=== PATIENT | female | born 1950 | race Caucasian/White ===

== ENCOUNTER 2018-10-09 20:09 | Inpatient (IN) | payer OTHER, MEDICAID ==
[~2018-10-09] VITALS: Ht 152.4 cm; Wt 46.7 kg
[2018-10-09] MEDS ORDERED: IPRATROPIUM BROMIDE (0.02%) 0.5MG/2.5ML NEB HHN STA (20:51)
[2018-10-09] MEDS ORDERED: METHYLPREDNISOLONE SOD SUCC 125 MG/2 ML VIAL IV STA (20:51)
[2018-10-09] MEDS ORDERED: ALBUTEROL (0.083%) 2.5MG/3ML NEB HHN STA (20:51)
[2018-10-09] MEDS ORDERED: MAGNESIUM 2 G PREMIX 50 ML IV ONE (21:00)
[2018-10-09] MEDS ORDERED: ASPIRIN 81MG TABLET PO ONE (21:00)
[2018-10-09 21:31] LABS: BASOPHILS % 0.3 % (0.0-2.0); EOSINOPHILS % 0.8 % (0.0-5.0); HEMATOCRIT. 42.3 % (36.0-48.0); HEMOGLOBIN. 13.2 g/dL (12.0-16.0); LYMPHOCYTES % 36.6 % (20.0-50.0); MEAN CORPUSCULAR HEMOGLOBIN 31.2 pg (28.0-32.0); MEAN CORPUSCULAR VOLUME 99.9 fL (81.0-99.0); MEAN PLATELET VOLUME 8.9 fl (7.4-10.4); MONOCYTES % 8.2 % (2.0-8.0); NEUTROPHILS % 54.1 % (40.0-76.0); PLATELET 283 x1000/uL (130-400); RED BLOOD CELL COUNT 4.23 mill/uL (4.2-5.4); RED CELL DISTRIBUTION WIDTH 14.2 % (11.6-14.6)
[2018-10-09 21:37] LABS: CHLORIDE 94 mEq/L (98-107)
[2018-10-09 21:38] LABS: INR 1.2; PARTIAL THROMBOPLASTIN TIME 27.8 sec (23.4-31.0); PROTHROMBIN TIME 12.1 sec (9.1-11.1)
[2018-10-09 22:38] LABS: BG BASE EXCESS 20.8 mmol/L (-2.0-2.0); BG CARBOXYHEMOGLOBIN 1.2 % (0.5-1.5); BG DEOXYHEMOGLOBIN 17.8 % (0.0-5.0); BG FRACTION INSPIRED OXYGEN 28; BG HCO3 ACT 55.6 mmol/L (22.0-26.0); BG METHEMOGLOBIN 0.4 % (0.0-1.5); BG OXYGEN SATURATION 81.9 % (92.0-98.5); BG OXYHEMOGLOBIN 80.6 % (94.0-97.0); BG PCO2 141.2 mmHg (35.0-45.0); BG PH 7.213 (7.350-7.450); BG PO2 51.1 mmHg (75.0-100.0); BG SAMPLE SITE RIGHT BRACHIAL; BG TOTAL HEMOGLOBIN 13.6 g/dL (12.0-18.0); BG VENT MODE NASAL CANNULA
[2018-10-09] MEDS ORDERED: CLONIDINE 0.1MG TABLET PO PRN (23:00)
[2018-10-09] MEDS ORDERED: ACETAMINOPHEN 650MG/20.3ML UDC GT PRN (23:00)
[2018-10-09] MEDS ORDERED: DIPHENHYDRAMINE 50MG/ML VIAL IV PRN (23:00)
[2018-10-09] MEDS ORDERED: DOCUSATE SODIUM 100MG CAPSULE PO PRN (23:00)
[2018-10-09] MEDS ORDERED: GUAIFENESIN 200MG/10ML SUGAR FREE UDC PO PRN (23:00)
[2018-10-09] MEDS ORDERED: MAGNESIUM/ALUMINUM HYDROXIDE/SIMETHICONE 30ML UDC PO PRN (23:00)
[2018-10-09] MEDS ORDERED: HYDROCODONE/ACETAMINOPHEN 5/325MG TABLET PO PRN (23:00)
[2018-10-09] MEDS ORDERED: ACETAMINOPHEN 325MG TABLET PO PRN (23:00)
[2018-10-09] MEDS ORDERED: ONDANSETRON HCL 4MG/2ML INJ IV PRN (23:00)
[2018-10-09] MEDS ORDERED: ACETAMINOPHEN 650MG SUPP PR PRN (23:00)
[2018-10-09 23:49] LABS: BG BASE EXCESS 21.1 mmol/L (-2.0-2.0); BG CARBOXYHEMOGLOBIN 0.9 % (0.5-1.5); BG DEOXYHEMOGLOBIN 1.3 % (0.0-5.0); BG FRACTION INSPIRED OXYGEN 40; BG HCO3 ACT 57.1 mmol/L (22.0-26.0); BG METHEMOGLOBIN 0.6 % (0.0-1.5); BG OXYGEN SATURATION 98.7 % (92.0-98.5); BG OXYHEMOGLOBIN 97.2 % (94.0-97.0); BG PH 7.168 (7.350-7.450); BG PO2 166.1 mmHg (75.0-100.0); BG SAMPLE SITE RIGHT RADIAL; BG TOTAL HEMOGLOBIN 13.6 g/dL (12.0-18.0); BG VENT MODE MASK - BIPAP; BG VENT RATE 14 set
[2018-10-10] VITALS (41 sets, daily range): BP systolic 97–149; BP diastolic 55–91
[2018-10-10] MEDS ORDERED: PROPOFOL 10MG/ML 100ML 100 ML IV ONE (00:13)
[2018-10-10] MEDS ORDERED: PROPOFOL 10MG/ML 100ML 100 ML IV SCH ×2 (00:15→02:15)
[2018-10-10] MEDS ORDERED: SUCCINYLCHOLINE CHLORIDE 200MG/10ML IV ONE (00:15)
[2018-10-10] MEDS ORDERED: ETOMIDATE 2MG/ML 10ML VIAL IV ONE (00:15)
[2018-10-10 00:38] LABS: CLARITY URINE CLEAR (CLEAR); COLOR URINE YELLOW (YELLOW); KETONES URINE NEGATIVE (NEGATIVE); LEUKOCYTE ESTERASE URINE NEGATIVE (NEGATIVE); NITRITE URINE NEGATIVE (NEGATIVE); OCCULT BLOOD URINE NEGATIVE (NEGATIVE); PH URINE 5.5 (4.5-8.0); PROTEIN URINE TRACE (NEGATIVE); SPECIFIC GRAVITY URINE 1.023 (1.005-1.030); UROBILINOGEN URINE 0.2 E.U./dL (0.2-1.0)
[2018-10-10] MEDS ORDERED: SODIUM CHLORIDE 0.9% 1,000 ML IV ONE (00:42)
[2018-10-10] MEDS ORDERED: NOREPINEPHRINE 4MG/250ML PMX 250 ML IV ONE (01:18)
[2018-10-10 01:21] LABS: BG CARBOXYHEMOGLOBIN 0.3 % (0.5-1.5); BG DEOXYHEMOGLOBIN 0.6 % (0.0-5.0); BG FRACTION INSPIRED OXYGEN 100; BG HCO3 ACT 35.2 mmol/L (22.0-26.0); BG METHEMOGLOBIN 0.3 % (0.0-1.5); BG OXYGEN SATURATION 99.4 % (92.0-98.5); BG OXYHEMOGLOBIN 98.8 % (94.0-97.0); BG PH 7.511 (7.350-7.450); BG PO2 245.4 mmHg (75.0-100.0); BG SAMPLE SITE LEFT BRACHIAL; BG TIDAL VOLUME(mL) 400 mL; BG TOTAL HEMOGLOBIN 11.7 g/dL (12.0-18.0); BG VENT MODE VENT - A/C; BG VENT RATE 14 set
[2018-10-10] MEDS ORDERED: NOREPINEPHRINE 4 MG in DEXT 5% WATER 246 ML IV ONE (01:30)
[2018-10-10] MEDS ORDERED: NA PHOS,M-B/NA PHOS,DI-BA ENEMA 118ML PR PRN (03:30)
[2018-10-10] MEDS ORDERED: IPRATROPIUM/ALBUTEROL 0.5-3(2.5)MG/3ML NEB HHN PRN (03:45)
[2018-10-10] MEDS ORDERED: PROPOFOL 10MG/ML 100ML 100 ML IV PRN (03:45)
[2018-10-10] MEDS: IPRATROPIUM/ALBUTEROL 0.5-3(2.5)MG/3ML NEB HHN SCH ×5 (04:22→19:58)
[2018-10-10] MEDS: METHYLPREDNISOLONE SOD SUCC 125 MG/2 ML VIAL IV SCH ×4 (06:17→23:09)
[2018-10-10 06:18] LABS: BASOPHILS % 0.4 % (0.0-2.0); HEMATOCRIT. 39.8 % (36.0-48.0); HEMOGLOBIN. 12.4 g/dL (12.0-16.0); LYMPHOCYTES % 10.9 % (20.0-50.0); MEAN CORPUSCULAR HEMOGLOBIN 30.9 pg (28.0-32.0); MEAN CORPUSCULAR VOLUME 98.9 fL (81.0-99.0); MEAN PLATELET VOLUME 8.7 fl (7.4-10.4); MONOCYTES % 5.7 % (2.0-8.0); PLATELET 253 x1000/uL (130-400); RED BLOOD CELL COUNT 4.02 mill/uL (4.2-5.4); RED CELL DISTRIBUTION WIDTH 14.2 % (11.6-14.6)
[2018-10-10 06:29] LABS: CHLORIDE 97 mEq/L (98-107)
[2018-10-10 06:37] LABS: LDL CHOLESTEROL 80 mg/dL (5-100)
[2018-10-10 06:39] LABS: HDL CHOLESTEROL 73 mg/dL (40-59)
[2018-10-10 06:41] LABS: CREATINE KINASE MB FRACTION 1.7 ng/mL (0.5-3.6)
[2018-10-10 07:20] LABS: CREATINE KINASE 59 IU/L (26-192)
[2018-10-10 08:04] LABS: BG BASE EXCESS 12.6 mmol/L (-2.0-2.0); BG CARBOXYHEMOGLOBIN 0.5 % (0.5-1.5); BG DEOXYHEMOGLOBIN 0.4 % (0.0-5.0); BG FRACTION INSPIRED OXYGEN 60; BG METHEMOGLOBIN 0.7 % (0.0-1.5); BG OXYGEN SATURATION 99.6 % (92.0-98.5); BG OXYHEMOGLOBIN 98.4 % (94.0-97.0); BG PCO2 41.1 mmHg (35.0-45.0); BG PO2 277.5 mmHg (75.0-100.0); BG SAMPLE SITE RIGHT RADIAL; BG TIDAL VOLUME(mL) 400 mL; BG TOTAL HEMOGLOBIN 12.7 g/dL (12.0-18.0); BG VENT MODE VENT - A/C; BG VENT RATE 14 set
[2018-10-10] MEDS ORDERED: ENOXAPARIN 40MG/0.4ML SYR SUBCUT SCH (09:00)
[2018-10-10] MEDS ORDERED: LOSA1TAB37 PO (11:26)
[2018-10-10] MEDS ORDERED: DEXTROSE 50% WATER 50ML SYRINGE IV PRN (13:30)
[2018-10-10] MEDS ORDERED: LEVOFLOXACIN 500MG PREMIX 100 ML IV NR (14:00)
[2018-10-10] MEDS: DEXT 5%/0.45% NACL 1000ML 1,000 ML IV SCH (14:14)
[2018-10-10] MEDS: FAMOTIDINE 20MG/2ML VIAL IV SCH (14:59)
[2018-10-10 15:40] LABS: BG BASE EXCESS 11.2 mmol/L (-2.0-2.0); BG CARBOXYHEMOGLOBIN 0.1 % (0.5-1.5); BG DEOXYHEMOGLOBIN 1.6 % (0.0-5.0); BG FRACTION INSPIRED OXYGEN 40; BG HCO3 ACT 38.4 mmol/L (22.0-26.0); BG METHEMOGLOBIN 0.4 % (0.0-1.5); BG OXYGEN SATURATION 98.4 % (92.0-98.5); BG OXYHEMOGLOBIN 97.9 % (94.0-97.0); BG PCO2 63.2 mmHg (35.0-45.0); BG PH 7.402 (7.350-7.450); BG PO2 122.8 mmHg (75.0-100.0); BG SAMPLE SITE RIGHT RADIAL; BG TIDAL VOLUME(mL) 400 mL; BG TOTAL HEMOGLOBIN 12.8 g/dL (12.0-18.0); BG VENT MODE VENT - A/C; BG VENT RATE 8 set
[2018-10-10 17:02] LABS: CREATINE KINASE MB FRACTION 1.5 ng/mL (0.5-3.6)
[2018-10-10] MEDS: LORAZEPAM 2MG/ML CPJ IV PRN (18:07)
[2018-10-10] MEDS: PROPOFOL 10MG/ML 100ML 100 ML IV PRN (18:08)
[2018-10-10] MEDS: BLOOD SUGAR DIAGNOSTIC STRIP TEST SCH (18:19)
[2018-10-10] MEDS: INSULIN LISPRO 100 UNITS/ML SUBCUT SCH (18:22)
[2018-10-11] VITALS (48 sets, daily range): BP systolic 100–147; BP diastolic 53–85
[2018-10-11] MEDS: BLOOD SUGAR DIAGNOSTIC STRIP TEST SCH ×4 (00:03→17:21)
[2018-10-11] MEDS: IPRATROPIUM/ALBUTEROL 0.5-3(2.5)MG/3ML NEB HHN SCH ×7 (00:18→20:24)
[2018-10-11] MEDS: INSULIN LISPRO 100 UNITS/ML SUBCUT SCH ×3 (00:30→17:21)
[2018-10-11] MEDS: LORAZEPAM 2MG/ML CPJ IV PRN ×2 (02:16→08:13)
[2018-10-11] MEDS: DEXT 5%/0.45% NACL 1000ML 1,000 ML IV SCH ×2 (04:08→17:50)
[2018-10-11] MEDS: METHYLPREDNISOLONE SOD SUCC 125 MG/2 ML VIAL IV SCH (05:06)
[2018-10-11] MEDS: PROPOFOL 10MG/ML 100ML 100 ML IV PRN ×2 (05:09→21:14)
[2018-10-11 07:51] LABS: CHLORIDE 98 mEq/L (98-107)
[2018-10-11 07:54] LABS: HEMATOCRIT 39.3 % (36.0-48.0); HEMOGLOBIN 12.2 g/dL (12.0-16.0); MEAN CORPUSCULAR HEMOGLOBIN 30.4 pg (28.0-32.0); MEAN CORPUSCULAR VOLUME 98.4 fL (81.0-99.0); PLATELET 301 x1000/uL (130-400); RED CELL DISTRIBUTION WIDTH 14.2 % (11.6-14.6)
[2018-10-11 08:06] LABS: BG BASE EXCESS 12.7 mmol/L (-2.0-2.0); BG CARBOXYHEMOGLOBIN 0.6 % (0.5-1.5); BG FRACTION INSPIRED OXYGEN 35; BG HCO3 ACT 39.5 mmol/L (22.0-26.0); BG METHEMOGLOBIN 0.1 % (0.0-1.5); BG OXYHEMOGLOBIN 94.3 % (94.0-97.0); BG PCO2 61.7 mmHg (35.0-45.0); BG PH 7.424 (7.350-7.450); BG SAMPLE SITE RIGHT RADIAL; BG TIDAL VOLUME(mL) 400 mL; BG TOTAL HEMOGLOBIN 12.3 g/dL (12.0-18.0); BG VENT MODE VENT - A/C; BG VENT RATE 8 set
[2018-10-11] MEDS: FAMOTIDINE 20MG/2ML VIAL IV SCH (08:13)
[2018-10-11] MEDS ORDERED: DEXTROSE 50% WATER 50ML SYRINGE IV PRN (08:15)
[2018-10-11] MEDS ORDERED: FAMOTIDINE 20MG/2ML VIAL IV SCH (09:00)
[2018-10-11] MEDS: ENOXAPARIN 30MG/0.3ML SYR SUBCUT SCH (10:15)
[2018-10-11] MEDS: METHYLPREDNISOLONE SOD SUCC 40 MG/ML VIAL IV SCH ×2 (16:45→21:55)
[2018-10-11] MEDS: LEVOFLOXACIN 250MG PREMIX 50 ML IV SCH (16:46)
[2018-10-12] VITALS (48 sets, daily range): BP systolic 93–176; BP diastolic 45–105
[2018-10-12] MEDS: INSULIN LISPRO 100 UNITS/ML SUBCUT SCH ×4 (00:06→17:21)
[2018-10-12] MEDS: IPRATROPIUM/ALBUTEROL 0.5-3(2.5)MG/3ML NEB HHN SCH ×6 (00:20→20:30)
[2018-10-12] MEDS: BLOOD SUGAR DIAGNOSTIC STRIP TEST SCH ×4 (05:56→17:22)
[2018-10-12] MEDS: METHYLPREDNISOLONE SOD SUCC 40 MG/ML VIAL IV SCH ×2 (07:09→17:31)
[2018-10-12] MEDS: PROPOFOL 10MG/ML 100ML 100 ML IV PRN (08:09)
[2018-10-12] MEDS: ENOXAPARIN 30MG/0.3ML SYR SUBCUT SCH (08:10)
[2018-10-12] MEDS: FAMOTIDINE 20MG/2ML VIAL IV SCH (08:10)
[2018-10-12 08:35] LABS: CHLORIDE 101 mEq/L (98-107)
[2018-10-12 08:38] LABS: HEMATOCRIT 39.9 % (36.0-48.0); HEMOGLOBIN 12.8 g/dL (12.0-16.0); MEAN CORPUSCULAR HEMOGLOBIN 31.3 pg (28.0-32.0); MEAN CORPUSCULAR VOLUME 97.6 fL (81.0-99.0); PLATELET 284 x1000/uL (130-400); RED BLOOD CELL COUNT 4.09 mill/uL (4.2-5.4); RED CELL DISTRIBUTION WIDTH 14.3 % (11.6-14.6)
[2018-10-12 08:45] LABS: BG BASE EXCESS 11.6 mmol/L (-2.0-2.0); BG CARBOXYHEMOGLOBIN 0.2 % (0.5-1.5); BG DEOXYHEMOGLOBIN 2.5 % (0.0-5.0); BG FRACTION INSPIRED OXYGEN 35; BG HCO3 ACT 37.1 mmol/L (22.0-26.0); BG METHEMOGLOBIN 0.4 % (0.0-1.5); BG OXYGEN SATURATION 97.5 % (92.0-98.5); BG OXYHEMOGLOBIN 96.9 % (94.0-97.0); BG PCO2 52.1 mmHg (35.0-45.0); BG PO2 97.5 mmHg (75.0-100.0); BG SAMPLE SITE RIGHT BRACHIAL; BG TIDAL VOLUME(mL) 450 mL; BG TOTAL HEMOGLOBIN 12.5 g/dL (12.0-18.0); BG VENT MODE VENT - A/C; BG VENT RATE 8 set
[2018-10-12] MEDS: DEXT 5%/0.45% NACL 1000ML 1,000 ML IV SCH ×2 (10:59→11:01)
[2018-10-12] MEDS: LORAZEPAM 2MG/ML CPJ IV PRN ×2 (12:57→18:20)
[2018-10-12 14:08] LABS: BG BASE EXCESS 8.4 mmol/L (-2.0-2.0); BG CARBOXYHEMOGLOBIN 0.6 % (0.5-1.5); BG DEOXYHEMOGLOBIN 3.7 % (0.0-5.0); BG FRACTION INSPIRED OXYGEN 35; BG HCO3 ACT 34.5 mmol/L (22.0-26.0); BG METHEMOGLOBIN 0.3 % (0.0-1.5); BG OXYGEN SATURATION 96.3 % (92.0-98.5); BG OXYHEMOGLOBIN 95.4 % (94.0-97.0); BG PEEP (cmH2O) 0 cmH2O; BG PH 7.423 (7.350-7.450); BG PO2 84.9 mmHg (75.0-100.0); BG SAMPLE SITE RIGHT RADIAL; BG TOTAL HEMOGLOBIN 13.1 g/dL (12.0-18.0); BG VENT MODE VENT - CPAP
[2018-10-12] MEDS: LEVOFLOXACIN 250MG PREMIX 50 ML IV SCH (14:08)
[2018-10-12] MEDS ORDERED: METOPROLOL TARTRATE 5MG/5ML VIAL IV NR (15:00)
[2018-10-13] VITALS (34 sets, daily range): BP systolic 103–177; BP diastolic 62–108
[2018-10-13] MEDS: BLOOD SUGAR DIAGNOSTIC STRIP TEST SCH ×4 (00:14→17:48)
[2018-10-13] MEDS: IPRATROPIUM/ALBUTEROL 0.5-3(2.5)MG/3ML NEB HHN SCH ×5 (00:28→21:41)
[2018-10-13] MEDS: LORAZEPAM 2MG/ML CPJ IV PRN (02:08)
[2018-10-13] MEDS: DEXT 5%/0.45% NACL 1000ML 1,000 ML IV SCH ×2 (02:10→17:48)
[2018-10-13 06:00] LABS: CHLORIDE 101 mEq/L (98-107)
[2018-10-13] MEDS: INSULIN LISPRO 100 UNITS/ML SUBCUT SCH ×4 (06:00→18:00)
[2018-10-13 06:07] LABS: HEMATOCRIT 38.7 % (36.0-48.0); HEMOGLOBIN 12.4 g/dL (12.0-16.0); MEAN CORPUSCULAR HEMOGLOBIN 31.1 pg (28.0-32.0); MEAN CORPUSCULAR VOLUME 96.9 fL (81.0-99.0); PLATELET 246 x1000/uL (130-400); RED BLOOD CELL COUNT 3.99 mill/uL (4.2-5.4); RED CELL DISTRIBUTION WIDTH 14.3 % (11.6-14.6)
[2018-10-13] MEDS: METHYLPREDNISOLONE SOD SUCC 40 MG/ML VIAL IV SCH ×2 (06:21→17:48)
[2018-10-13] MEDS: ENOXAPARIN 30MG/0.3ML SYR SUBCUT SCH (08:40)
[2018-10-13] MEDS: FAMOTIDINE 20MG/2ML VIAL IV SCH (08:41)
[2018-10-13 09:06] LABS: BG CARBOXYHEMOGLOBIN 0.2 % (0.5-1.5); BG DEOXYHEMOGLOBIN 5.7 % (0.0-5.0); BG FRACTION INSPIRED OXYGEN 40; BG HCO3 ACT 36.7 mmol/L (22.0-26.0); BG OXYGEN SATURATION 94.2 % (92.0-98.5); BG OXYHEMOGLOBIN 93.1 % (94.0-97.0); BG PH 7.412 (7.350-7.450); BG PO2 72.6 mmHg (75.0-100.0); BG SAMPLE SITE RIGHT RADIAL; BG TOTAL HEMOGLOBIN 13.2 g/dL (12.0-18.0); BG VENT MODE MASK - AEROSOL
[2018-10-13] MEDS ORDERED: POTASSIUM CHLORIDE INJ 40 MEQ in DEXT 5% WATER 250 ML IV SCH (12:00)
[2018-10-13] MEDS ORDERED: LORAZEPAM 2MG/ML CPJ IV PRN (12:00)
[2018-10-13] MEDS: LEVOFLOXACIN 250MG PREMIX 50 ML IV SCH (14:26)
[2018-10-14] VITALS (14 sets, daily range): BP systolic 102–155; BP diastolic 42–86
[2018-10-14] MEDS: IPRATROPIUM/ALBUTEROL 0.5-3(2.5)MG/3ML NEB HHN SCH ×7 (01:10→23:58)
[2018-10-14] MEDS: INSULIN LISPRO 100 UNITS/ML SUBCUT SCH ×4 (05:54→17:38)
[2018-10-14] MEDS: METHYLPREDNISOLONE SOD SUCC 40 MG/ML VIAL IV SCH ×2 (05:54→18:00)
[2018-10-14] MEDS: BLOOD SUGAR DIAGNOSTIC STRIP TEST SCH ×4 (05:54→17:38)
[2018-10-14] MEDS: DEXT 5%/0.45% NACL 1000ML 1,000 ML IV SCH ×2 (05:57→21:59)
[2018-10-14 07:15] LABS: HEMATOCRIT 36.6 % (36.0-48.0); HEMOGLOBIN 11.6 g/dL (12.0-16.0); MEAN CORPUSCULAR HEMOGLOBIN 31.1 pg (28.0-32.0); MEAN CORPUSCULAR VOLUME 97.7 fL (81.0-99.0); PLATELET 258 x1000/uL (130-400); RED BLOOD CELL COUNT 3.75 mill/uL (4.2-5.4); RED CELL DISTRIBUTION WIDTH 14.2 % (11.6-14.6)
[2018-10-14 07:16] LABS: CHLORIDE 101 mEq/L (98-107)
[2018-10-14 07:49] LABS: BG BASE EXCESS 11.5 mmol/L (-2.0-2.0); BG CARBOXYHEMOGLOBIN 0.5 % (0.5-1.5); BG DEOXYHEMOGLOBIN 4.2 % (0.0-5.0); BG FRACTION INSPIRED OXYGEN 28; BG HCO3 ACT 39.2 mmol/L (22.0-26.0); BG METHEMOGLOBIN 0.3 % (0.0-1.5); BG OXYGEN SATURATION 95.8 % (92.0-98.5); BG PCO2 67.4 mmHg (35.0-45.0); BG PH 7.383 (7.350-7.450); BG PO2 80.8 mmHg (75.0-100.0); BG SAMPLE SITE RIGHT BRACHIAL; BG VENT MODE NASAL CANNULA
[2018-10-14] MEDS: FAMOTIDINE 20MG/2ML VIAL IV SCH ×2 (09:04→09:37)
[2018-10-14] MEDS: ENOXAPARIN 30MG/0.3ML SYR SUBCUT SCH ×2 (09:05→09:39)
[2018-10-14] MEDS: LEVOFLOXACIN 250MG PREMIX 50 ML IV SCH (13:33)
[2018-10-15] VITALS: BP 128/65
[2018-10-15] MEDS: BLOOD SUGAR DIAGNOSTIC STRIP TEST SCH ×4 (00:26→16:58)
[2018-10-15 04:00] VITALS: BP 118/73
[2018-10-15] MEDS: IPRATROPIUM/ALBUTEROL 0.5-3(2.5)MG/3ML NEB HHN SCH ×5 (04:06→21:13)
[2018-10-15] MEDS: INSULIN LISPRO 100 UNITS/ML SUBCUT SCH ×4 (06:00→16:58)
[2018-10-15] MEDS: METHYLPREDNISOLONE SOD SUCC 40 MG/ML VIAL IV SCH ×3 (06:00→17:15)
[2018-10-15 07:46] LABS: BASOPHILS % 0.1 % (0.0-2.0); EOSINOPHILS % 1.6 % (0.0-5.0); HEMOGLOBIN. 11.2 g/dL (12.0-16.0); LYMPHOCYTES % 35.8 % (20.0-50.0); MEAN CORPUSCULAR HEMOGLOBIN 31.1 pg (28.0-32.0); MEAN CORPUSCULAR VOLUME 97.6 fL (81.0-99.0); MEAN PLATELET VOLUME 8.4 fl (7.4-10.4); MONOCYTES % 8.6 % (2.0-8.0); NEUTROPHILS % 53.9 % (40.0-76.0); PLATELET 251 x1000/uL (130-400); RED BLOOD CELL COUNT 3.59 mill/uL (4.2-5.4); RED CELL DISTRIBUTION WIDTH 13.9 % (11.6-14.6)
[2018-10-15 07:59] LABS: CHLORIDE 100 mEq/L (98-107)
[2018-10-15 08:00] VITALS: BP 104/57
[2018-10-15 12:00] VITALS: BP 103/63
[2018-10-15] MEDS ORDERED: POTASSIUM CHLORIDE 20MEQ TABLET SR PO SCH (13:30)
[2018-10-15] MEDS: LEVOFLOXACIN 250MG PREMIX 50 ML IV SCH (13:43)
[2018-10-15] MEDS: DEXT 5%/0.45% NACL 1000ML 1,000 ML IV SCH (13:44)
[2018-10-15] MEDS ORDERED: ACETAMINOPHEN WITH CODEINE 300/30MG TABLET PO ONE (15:30)
[2018-10-15] MEDS ORDERED: SIMETHICONE 40 MG/0.6 ML 30ML PO NR (15:30)
[2018-10-15] MEDS ORDERED: SIMETHICONE 80MG TABLET CHEW PO PRN (15:30)
[2018-10-15 16:00] VITALS: BP 133/69
[2018-10-15 20:00] VITALS: BP 143/75
[2018-10-16] VITALS: BP 137/64
[2018-10-16] MEDS: IPRATROPIUM/ALBUTEROL 0.5-3(2.5)MG/3ML NEB HHN SCH ×5 (01:10→14:07)
[2018-10-16] MEDS: INSULIN LISPRO 100 UNITS/ML SUBCUT SCH ×4 (06:00→18:00)
[2018-10-16] MEDS: BLOOD SUGAR DIAGNOSTIC STRIP TEST SCH ×4 (06:19→18:34)
[2018-10-16] MEDS: METHYLPREDNISOLONE SOD SUCC 40 MG/ML VIAL IV SCH (06:28)
[2018-10-16 08:00] VITALS: BP 142/82
[2018-10-16] MEDS: ENOXAPARIN 30MG/0.3ML SYR SUBCUT SCH ×2 (08:59→09:00)
[2018-10-16] MEDS: FAMOTIDINE 20MG/2ML VIAL IV SCH (09:00)
[2018-10-16 12:00] VITALS: BP 139/75
[2018-10-16] MEDS: LEVOFLOXACIN 250MG PREMIX 50 ML IV SCH (14:50)
[2018-10-16 16:00] VITALS: BP 136/74
[2018-10-16 16:15] LABS: HEMATOCRIT 35.3 % (36.0-48.0); HEMOGLOBIN 11.6 g/dL (12.0-16.0); MEAN CORPUSCULAR HEMOGLOBIN 31.9 pg (28.0-32.0); MEAN CORPUSCULAR VOLUME 96.7 fL (81.0-99.0); PLATELET 293 x1000/uL (130-400); RED BLOOD CELL COUNT 3.65 mill/uL (4.2-5.4)
[2018-10-16 16:16] LABS: CHLORIDE 98 mEq/L (98-107)
[2018-10-16 18:05] VITALS: BP 136/74
[2018-10-17] MEDS ORDERED: METHYLPREDNISOLONE SOD SUCC 40 MG/ML VIAL IV SCH (09:00)
== END 2018-10-16 20:25 | disposition home health service (06) | DRG 208 ==
LOC: ER 20:09 → CVICU 23:04 → EDBEDREQ 23:05 → EDBEDREQTM 10-10 00:09 → EDBEDREQDT 10-10 00:09 → EDBEDREQSVC 10-10 00:09 → EDBEDREQ 10-10 00:53 → ENRESERV 10-10 01:43 → 5WST 10-14 10:47
PROVIDERS: ADMIT Internal Medicine; ATTEND Internal Medicine
PROC: 06HY33Z Insertion of Infusion Device into Lower Vein, Percutaneous Approach (ICD-10-PCS; 2018-10-09)
PROC: 5A09357 Assistance with Respiratory Ventilation, Less than 24 Consecutive Hours, Continuous Positive Airway Pressure (ICD-10-PCS; 2018-10-09)
PROC: 0BH17EZ Insertion of Endotracheal Airway into Trachea, Via Natural or Artificial Opening (ICD-10-PCS; 2018-10-09)
PROC: 5A1945Z Respiratory Ventilation, 24-96 Consecutive Hours (ICD-10-PCS; principal; 2018-10-10)
DX: J96.22 Acute and chronic respiratory failure with hypercapnia (principal); J44.1 Chronic obstructive pulmonary disease with (acute) exacerbation; E87.0 Hyperosmolality and hypernatremia; E44.1 Mild protein-calorie malnutrition; I10 Essential (primary) hypertension; D72.829 Elevated white blood cell count, unspecified; E09.9 Drug or chemical induced diabetes mellitus without complications; E87.6 Hypokalemia; J06.9 Acute upper respiratory infection, unspecified; T38.0X5A Adverse effect of glucocorticoids and synthetic analogues, initial encounter; Y92.89 Other specified places as the place of occurrence of the external cause; Z78.1 Physical restraint status; Z87.891 Personal history of nicotine dependence; Z91.19 Patient's noncompliance with other medical treatment and regimen; Z99.81 Dependence on supplemental oxygen; Z68.20 Body mass index [BMI] 20.0-20.9, adult
CPT/HCPCS: 36415; 36600; 71045; 80048; 80061; 82375; 82550; 82553; 82805; 82962; 83036; 83735; 83880; 84478; 84484; 85027; 87070; 93005; 93306; 93970; 94640; 96374; 97116; 97162; 99285; A6261; J1650; J1815; J1956; J2060; J2704; J2920; J2930; J3475; J3480; J3490; J7030; J7050; J7060; J7620